=== PATIENT | male | born 1955 | race Caucasian/White ===

== ENCOUNTER → 2016-10-22 | Outpatient (CLI) | payer BC ==
[~2016-10-22] MED LIST: ASPIRIN PO; ASPIRIN81 M1 PO; ATENOLOL25 MG PO; KEFLEX PO; LIPITOR20 MG PO; NORVASC PO; OMEPRAZOLE20 M2 PO; VICODIN 5/500 T1 TAB PO; VITAMIN D1000 UNI1 PO; VOLTAREN75 MG PO; ZOCOR PO
--- NOTE | ~2016-10-22 | CR63 ---
[facility]. [facility] A Service [facility] RADIOLOGY TEXT RESULTS PATIENT: DEBRA MCNALLY LOCATION: [facility] : 59 UNIT #: [id number] AGE: [address]: Diana Trujillo MD SEX: M ORDER DR: [id number] [address] [address] [id number] O MR#: [id number] Acc #: [id number] NAME: DEBRA MCNALLY : 1955 SEX: M STUDY DATE/TIME: 10/22/2016 10:22 UNIT: [facility] ROOM: STUDY DESCRIPTION: CR Chest 2 View Attending Physician: Diana Trujillo M.D. Referring Physician: Diana Trujillo M.D. Ordering Physician: Diana Trujillo M.D. Primary Care Physician: Abdulaziz Barlow M.D. MEDICAL IMAGING REPORT This report is preliminary unless electronic signature is present. EXAM Chest, 10/22/2016 HISTORY 61-year-old male patient. High-risk medication followup. COMPARISON Chest 03/09/2015. FINDINGS PA and lateral chest views show normal stable cardiac size and configuration. Hilar structures and mediastinal contours are preserved. Bilateral lungs remain expanded and clear. Costophrenic angles are preserved. IMPRESSION Negative and stable chest. Dictated by... Milad Bullard M.D. THIS IS AN ELECTRONICALLY VERIFIED REPORT Milad Bullard M.D. at 10/24/2016 8:06 AM FÉLIX/hima TD: 10/23/2016 00:44 JOB #: [id number] MEDICAL IMAGING REPORT [facility]. [facility] A Service [facility] RADIOLOGY TEXT RESULTS PATIENT: DEBRA MCNALLY LOCATION: [facility] : 59 UNIT #: [id number] AGE: [address]: Diana Trujillo MD SEX: M ORDER DR: Page 1 of 1
== END | disposition home or self-care (01) ==
LOC: SRAD 10:14
DX: Z51.81 Encounter for therapeutic drug level monitoring (principal); L40.0 Psoriasis vulgaris; Z79.899 Other long term (current) drug therapy
CPT/HCPCS: 71020

== ENCOUNTER → 2016-11-30 | Outpatient (CLI) | payer BC ==
--- NOTE | ~2016-11-30 | US85 ---
[facility] A Service [facility] RADIOLOGY TEXT RESULTS PATIENT: DEBRA MCNALLY LOCATION: [facility] : 59 UNIT #: [id number] AGE: [address]: Fran Eli MD SEX: M ORDER DR: [id number] [address] [address] [id number] P MR#: [id number] Acc #: [id number] NAME: DEBRA MCNALLY. : 1955 SEX: M STUDY DATE/TIME: 11/30/2016 14:16 UNIT: [facility] ROOM: STUDY DESCRIPTION: [facility] Attending Physician: Fran Eli M.D. Ordering Physician: Fran Eli M.D. Primary Care Physician: Abdulaziz Barlow M.D. MEDICAL IMAGING REPORT This report is preliminary unless electronic signature is present. EXAM Left lower extremity venous Duplex, 11/30/2016. HISTORY Left lower extremity pain for 4 weeks. Evaluate for deep vein thrombosis. Pain from knee down to ankle. TECHNIQUE Venous ultrasound examination of the left lower extremity was performed using grayscale, spectral Doppler and color flow Doppler imaging. FINDINGS The examination is negative. There is no evidence of left lower extremity deep venous thrombus from the groin to the lower calf. Visualized greater saphenous vein is also patent. IMPRESSION Negative examination. No evidence of left lower extremity DVT. Dictated by... Lance Schroeder M.D. THIS IS AN ELECTRONICALLY VERIFIED REPORT Lance Schroeder M.D. at 12/03/2016 7:30 AM QUIN/serafin TD: 11/30/2016 22:51 JOB #: [id number] MEDICAL IMAGING REPORT [facility] A Service [facility] RADIOLOGY TEXT RESULTS PATIENT: DEBRA MCNALLY LOCATION: [facility] : 59 UNIT #: [id number] AGE: [address]: Fran Eli MD SEX: M ORDER DR: Page 1 of 1
== END | disposition home or self-care (01) ==
LOC: SNIV 07:41
DX: M79.662 Pain in left lower leg (principal)
CPT/HCPCS: 93971

== ENCOUNTER → 2016-12-19 | Outpatient (CLI) | payer BC ==
--- NOTE | ~2016-12-19 | MR113 ---
[facility] A Service of [facility] RADIOLOGY TEXT RESULTS PATIENT: DEBRA MCNALLY LOCATION: [facility] : 59 UNIT #: [id number] AGE: [address]: Fran Eli MD SEX: M ORDER DR: [id number] [place] [id number] O MR#: [id number] Acc #: [id number] NAME: DEBRA MCNALLY : 1955 SEX: M STUDY DATE/TIME: 12/19/2016 12:07 UNIT: [facility] ROOM: STUDY DESCRIPTION: MR Lumbar Wo Contrast Attending Physician: Fran Eli M.D. Referring Physician: Fran Eli M.D. Ordering Physician: Fran Eli M.D. Primary Care Physician: Fran Eli M.D. MRI CENTER REPORT This report is preliminary unless electronic signature is present. EXAM Lumbar spine MRI no contrast 12/19/2016 PROCEDURE Routine unenhanced lumbar spine MRI. COMPARISON None. CLINICAL HISTORY Low back pain radiating to both legs left greater than right. Symptoms for about 1 month. FINDINGS There is a very slight grade 1 3-4 anterolisthesis without pars defect. Alignment is otherwise normal. Bone marrow signal is normal and the distal cord and conus are normal in position and appearance. The paraspinous tissues are unremarkable. At L1-2, there may be some minimal disc desiccation but there is no substantial bulge or protrusion and there is no canal or foraminal compromise. At 2-3, there is a slight disc bulge and some facet arthropathy. There is no canal stenosis but there is mild right and ikjkornbfa-oa-tyvr left foraminal stenosis. At 3-4, there is anterolisthesis, pseudo disc bulge and facet arthropathy and mild canal stenosis and mild or even acrs-ba-tvfsxirw right and left foraminal stenosis. At 4-5, disc is well preserved in height and hydration. There is no canal stenosis and there is no foraminal stenosis. [facility] A Service of [facility] RADIOLOGY TEXT RESULTS PATIENT: DEBRA MCNALLY LOCATION: [facility] : 59 UNIT #: [id number] AGE: [address]: Fran Eli MD SEX: M ORDER DR: At L5-S1, the disc, canal and foramina are normal. IMPRESSION Degenerative changes as above including a slight degenerative grade 1 anterolisthesis at 3-4. Please see above for level by level details. No acute-appearing abnormality at any level. Dictated by... Alexandre Funes M.D. THIS IS AN ELECTRONICALLY VERIFIED REPORT Alexandre Funes M.D. at 12/21/2016 4:06 PM JM/ana rosa TD: 12/20/2016 08:05 JOB #: [id number] MRI CENTER REPORT Page 1 of 1
== END | disposition home or self-care (01) ==
LOC: SMRI 10:43
DX: M54.5 Low back pain (principal); M79.662 Pain in left lower leg; M43.16 Spondylolisthesis, lumbar region; M51.86 Other intervertebral disc disorders, lumbar region; M51.87 Other intervertebral disc disorders, lumbosacral region; M46.96 Unspecified inflammatory spondylopathy, lumbar region; M48.06 Spinal stenosis, lumbar region; M99.83 Other biomechanical lesions of lumbar region
CPT/HCPCS: 72148